=== PATIENT | male | born 1950 | race Hispanic/Latino ===

== ENCOUNTER 2018-12-03 13:54 | Inpatient (IN) | payer OTHER ==
[~2018-12-03] VITALS: Ht 170.2 cm; Wt 69.2 kg
[2018-12-03] MEDS ORDERED: ONDANSETRON HCL 4 MG/2 ML VIAL ONE (14:12)
[2018-12-03] MEDS ORDERED: MORPHINE SULFATE 4 MG/1ML SYG ONE ×3 (14:12→23:13)
[2018-12-03] MEDS ORDERED: SODIUM CHLORIDE 0.9% 1000ML 1,000 ML IV ONE ×3 (14:13→18:13)
[2018-12-03 14:17] LABS: BASOPHILS % (AUTO) 0.5 % (0.0-5.0); HEMATOCRIT 41.5 % (42-54); LYMPHOCYTES % (AUTO) 5.2 % (21.0-51.0); MEAN CORPUSCULAR HGB CONC 34.5 g/dL (32.0-36.0); MEAN CORPUSCULAR VOLUME 92.8 fL (79-99); MONOCYTES % (AUTO) 3.6 % (3.0-13.0); NEUTROPHILS % (AUTO) 90.7 % (40.0-77.0); PLATELET COUNT (AUTO) 293 K/uL (130-400); RED BLOOD CELL COUNT(AUTO) 4.47 MIL/uL (4.50-6.20); RED CELL DISTRIBUTION WIDTH 13.4 % (11.0-15.5); WHITE BLOOD COUNT (AUTO) 22.3 K/uL (4.8-10.8)
[2018-12-03 14:32] LABS: CREATININE 1.3 mg/dL (0.5-1.5)
[2018-12-03 14:34] LABS: INR 0.95 (0.85-1.15); PARTIAL THROMBOPLASTIN TIME 31.1 SEC (26.3-35.5)
[2018-12-03 14:36] LABS: ALBUMIN 3.4 g/dL (3.5-5.0); BILIRUBIN,TOTAL 0.6 mg/dL (0.2-1.0)
[2018-12-03] MEDS ORDERED: ZOSYN 3.375GM+NS 50ML 50 ML IV ONE (15:55)
[2018-12-04] MEDS ORDERED: ZOSYN 3.375GM+NS 50ML 50 ML IV ONE (00:02)
[2018-12-04] MEDS ORDERED: MORPHINE SULFATE 4 MG/1ML SYG ONE (03:56)
[2018-12-04 04:08] LABS: BASOPHILS % (AUTO) 0.3 % (0.0-5.0); EOSINOPHILS % (AUTO) 0.1 % (0.0-8.0); HEMATOCRIT 41.5 % (42-54); LYMPHOCYTES % (AUTO) 4.5 % (21.0-51.0); MEAN CORPUSCULAR HEMOGLOBIN 31.8 pg (27.0-33.0); MEAN CORPUSCULAR HGB CONC 34.2 g/dL (32.0-36.0); MONOCYTES % (AUTO) 3.1 % (3.0-13.0); PLATELET COUNT (AUTO) 282 K/uL (130-400); RED BLOOD CELL COUNT(AUTO) 4.46 MIL/uL (4.50-6.20); RED CELL DISTRIBUTION WIDTH 13.7 % (11.0-15.5); WHITE BLOOD COUNT (AUTO) 20.9 K/uL (4.8-10.8)
[2018-12-04 04:16] LABS: POTASSIUM 3.3 mmol/L (3.5-5.1)
[2018-12-04 04:21] LABS: ALBUMIN 2.5 g/dL (3.5-5.0); BILIRUBIN,TOTAL 1.8 mg/dL (0.2-1.0); TOTAL PROTEIN, SERUM 6.4 g/dL (6.0-8.3)
[2018-12-04 08:00] VITALS: BP 111/70
[2018-12-04 11:00] VITALS: BP 107/65
[2018-12-04] MEDS ORDERED: ONDANSETRON HCL 4 MG/2 ML VIAL IVP PRN (12:45)
[2018-12-04] MEDS: ZOSYN 3.375GM+NS 50ML 50 ML IV SCH ×2 (13:43→20:07)
[2018-12-04] MEDS: SODIUM CHLORIDE 0.9% 1000ML 1,000 ML IV SCH ×2 (13:44→23:07)
[2018-12-04 16:00] VITALS: BP 103/60
[2018-12-04] MEDS: FAMOTIDINE/PF 20 MG/2 ML VIAL IV SCH (20:07)
[2018-12-04 20:16] VITALS: BP 106/60
[2018-12-05] VITALS (8 sets, daily range): BP systolic 102–166; BP diastolic 59–84
[2018-12-05] MEDS: ZOSYN 3.375GM+NS 50ML 50 ML IV SCH ×3 (04:28→21:18)
[2018-12-05 06:21] LABS: HEMATOCRIT 39.8 % (42-54); MEAN CORPUSCULAR HGB CONC 34.1 g/dL (32.0-36.0); PLATELET COUNT (AUTO) 226 K/uL (130-400); RED BLOOD CELL COUNT(AUTO) 4.23 MIL/uL (4.50-6.20); RED CELL DISTRIBUTION WIDTH 13.5 % (11.0-15.5)
[2018-12-05 06:27] LABS: CREATININE 1.2 mg/dL (0.5-1.5); POTASSIUM 3.5 mmol/L (3.5-5.1)
[2018-12-05] MEDS: SODIUM CHLORIDE 0.9% 1000ML 1,000 ML IV SCH ×2 (09:19→21:18)
[2018-12-05] MEDS: FAMOTIDINE/PF 20 MG/2 ML VIAL IV SCH ×2 (09:19→21:21)
--- NOTE | 2018-12-05 18:03 | NUR ---
INITIAL: Met w pt this afternoon to discuss dcp. Pt mentions that he lives w spouse. Prior to admission he was independent w ambulation and aDLs. He owns a rollator and nebulizer. Pt states that he was still driving prior to admission. Pt mentions he feels safe and comfortable to [place]. CM to continue to follow and wait for Md recommendations. Addendum: 12/06/18 at 1805 by SHARMAINE PABLO Amended: Links added.
[2018-12-06] VITALS (24 sets, daily range): BP systolic 92–123; BP diastolic 55–75
[2018-12-06] MEDS: SODIUM CHLORIDE 0.9% 1000ML 1,000 ML IV SCH ×2 (04:11→14:45)
[2018-12-06] MEDS: ZOSYN 3.375GM+NS 50ML 50 ML IV SCH ×3 (04:25→20:59)
[2018-12-06 05:50] LABS: MEAN CORPUSCULAR HEMOGLOBIN 31.7 pg (27.0-33.0); MEAN CORPUSCULAR HGB CONC 34.3 g/dL (32.0-36.0); MEAN CORPUSCULAR VOLUME 92.5 fL (79-99); PLATELET COUNT (AUTO) 263 K/uL (130-400); RED BLOOD CELL COUNT(AUTO) 4.11 MIL/uL (4.50-6.20); RED CELL DISTRIBUTION WIDTH 13.2 % (11.0-15.5); WHITE BLOOD COUNT (AUTO) 5.9 K/uL (4.8-10.8)
[2018-12-06 06:07] LABS: ALBUMIN 2.3 g/dL (3.5-5.0); BILIRUBIN,TOTAL 1.5 mg/dL (0.2-1.0); CREATININE 1.1 mg/dL (0.5-1.5); POTASSIUM 3.4 mmol/L (3.5-5.1); TOTAL PROTEIN, SERUM 6.7 g/dL (6.0-8.3)
[2018-12-06] MEDS: FAMOTIDINE/PF 20 MG/2 ML VIAL IV SCH ×2 (09:56→20:59)
[2018-12-06] MEDS ORDERED: IOHEXOL-350 50ML VIAL IV ONE (11:44)
--- NOTE | 2018-12-06 11:49 | NUR ---
PT LEFT TO GI LAB DENIES SOB OR CHEST PAIN VITAL SIGNS STABLE
[2018-12-06] MEDS ORDERED: FUROSEMIDE 10 MG/ML 2ML VIAL IV SCH (12:30)
[2018-12-06] MEDS ORDERED: LACTULOSE 20 GM/30 ML UDCUP PO SCH (12:30)
[2018-12-06] MEDS ORDERED: IPRATROPIUM/ALBUTEROL SULFATE 3 ML SOLUTION IH PRN (12:30)
[2018-12-06] MEDS ORDERED: INDOMETHACIN 50 MG SUPP.RECT RC SCH (13:00)
[2018-12-06] MEDS ORDERED: PROPOFOL 10 MG/ML 20ML VIAL IV ONE (13:12)
[2018-12-06] MEDS ORDERED: FENTANYL CITRATE PF 50 MCG/1 ML 2ML VIAL ONE (13:12)
[2018-12-06] MEDS ORDERED: LIDOCAINE HCL 2% 20ML ONE (13:12)
[2018-12-06] MEDS ORDERED: SUCCINYLCHOLINE 200MG/10ML SYR ONE (13:12)
[2018-12-06] MEDS ORDERED: EPHEDRINE SULFATE 50 MG/ML AMPULE ONE (13:46)
[2018-12-07] VITALS (24 sets, daily range): BP systolic 101–153; BP diastolic 43–93
[2018-12-07] MEDS: SODIUM CHLORIDE 0.9% 1000ML 1,000 ML IV SCH ×2 (00:27→10:45)
[2018-12-07] MEDS: ZOSYN 3.375GM+NS 50ML 50 ML IV SCH ×3 (04:39→20:27)
[2018-12-07 05:11] LABS: HEMATOCRIT 35.8 % (42-54); MEAN CORPUSCULAR HEMOGLOBIN 32.3 pg (27.0-33.0); MEAN CORPUSCULAR HGB CONC 34.6 g/dL (32.0-36.0); MEAN CORPUSCULAR VOLUME 93.5 fL (79-99); PLATELET COUNT (AUTO) 271 K/uL (130-400); RED BLOOD CELL COUNT(AUTO) 3.83 MIL/uL (4.50-6.20); RED CELL DISTRIBUTION WIDTH 13.6 % (11.0-15.5); WHITE BLOOD COUNT (AUTO) 5.2 K/uL (4.8-10.8)
[2018-12-07 05:26] LABS: ALBUMIN 2.3 g/dL (3.5-5.0); BILIRUBIN,TOTAL 0.8 mg/dL (0.2-1.0); POTASSIUM 3.4 mmol/L (3.5-5.1); TOTAL PROTEIN, SERUM 6.4 g/dL (6.0-8.3)
[2018-12-07] MEDS: FAMOTIDINE/PF 20 MG/2 ML VIAL IV SCH ×2 (09:00→20:27)
--- NOTE | 2018-12-07 09:00 | NUR ---
PATIENT TAKING OFF UNIT TO OR HOLDING VIA BED
[2018-12-07] MEDS ORDERED: LACTATED RINGERS 1000ML 1,000 ML IV ONE (09:13)
--- NOTE | 2018-12-07 10:47 | NUR ---
POTENTIAL FOR INFECTION: SHAVED ENTIRE ABDOMEN PER [facility].
[2018-12-07] MEDS ORDERED: MIDAZOLAM HCL 1 MG/ML 2ML VIAL ONE (11:09)
[2018-12-07] MEDS ORDERED: PROPOFOL 10 MG/ML 20ML VIAL IV ONE (11:10)
[2018-12-07] MEDS ORDERED: FENTANYL CITRATE PF 50 MCG/1 ML 5ML AMP IV ONE (11:10)
[2018-12-07] MEDS ORDERED: GLYCOPYRROLATE 1 MG/5 ML SYRINGE ONE (11:11)
[2018-12-07] MEDS ORDERED: BUPIVACAINE/PF 0.5% 30ML VIAL ONE (11:44)
[2018-12-07] MEDS ORDERED: CEFAZOLIN SODIUM 1 GM VIAL ONE (12:05)
[2018-12-07] MEDS ORDERED: MEPERIDINE-PF 25 MG/ML SYG ONE (12:53)
--- NOTE | 2018-12-07 13:30 | NUR ---
REPORT CALLED PATIENT S/P LOUIE SOL WITH DR JARAD CHAUDHRY INCISION WITH BAND-AIDES X 4 DEMEROL GIVEN 25MG AT 1300 B/P144/64 HR 52 O2 ORIN 97 ON ROOM AIR RR 20 T 97.4 , DENIES PAIN AT THIS TIME BIND-AIDS DRY AND INTACT . IV INFUSING AT 75 CC/HR WILL CONTINUE TO MONITOR
[2018-12-07] MEDS: LACTATED RINGERS 1000ML 1,000 ML IV SCH (14:14)
[2018-12-07] MEDS: ACETAMINOPHEN 325 MG TAB PO PRN (20:27)
[2018-12-08] MEDS: LACTATED RINGERS 1000ML 1,000 ML IV SCH ×2 (02:13→17:47)
[2018-12-08] MEDS: ZOSYN 3.375GM+NS 50ML 50 ML IV SCH ×3 (04:07→20:47)
[2018-12-08 04:30] VITALS: BP 118/69
[2018-12-08 05:55] LABS: BASOPHILS % (AUTO) 0.6 % (0.0-5.0); EOSINOPHILS % (AUTO) 2.3 % (0.0-8.0); HEMATOCRIT 37.3 % (42-54); LYMPHOCYTES % (AUTO) 14.7 % (21.0-51.0); MEAN CORPUSCULAR HEMOGLOBIN 31.6 pg (27.0-33.0); MEAN CORPUSCULAR HGB CONC 34.6 g/dL (32.0-36.0); MEAN CORPUSCULAR VOLUME 91.4 fL (79-99); MONOCYTES % (AUTO) 6.2 % (3.0-13.0); NEUTROPHILS % (AUTO) 76.2 % (40.0-77.0); PLATELET COUNT (AUTO) 273 K/uL (130-400); RED BLOOD CELL COUNT(AUTO) 4.08 MIL/uL (4.50-6.20); RED CELL DISTRIBUTION WIDTH 13.1 % (11.0-15.5); WHITE BLOOD COUNT (AUTO) 7.3 K/uL (4.8-10.8)
[2018-12-08 06:04] LABS: CREATININE 1.1 mg/dL (0.5-1.5); MAGNESIUM 1.7 mg/dL (1.80-2.40); PHOSPHORUS 2.9 mg/dL (2.5-4.9); POTASSIUM 3.4 mmol/L (3.5-5.1)
[2018-12-08 07:42] VITALS: BP 127/77
[2018-12-08] MEDS: FAMOTIDINE/PF 20 MG/2 ML VIAL IV SCH ×2 (07:53→20:47)
[2018-12-08] MEDS: MORPHINE SULFATE 4 MG/1ML SYG IVP PRN ×3 (07:54→17:47)
[2018-12-08 11:14] VITALS: BP 125/61
[2018-12-08] MEDS ORDERED: MAGNESIUM 2GM PREMIX 50ML 50 ML IV PRN (12:45)
[2018-12-08] MEDS ORDERED: POTASSIUM CHLORIDE 20 MEQ ERTAB PO SCH (13:00)
[2018-12-08] MEDS: POTASSIUM CHLORIDE 20 MEQ ERTAB PO SCH ×3 (13:33→20:51)
[2018-12-08 15:55] VITALS: BP 111/66
[2018-12-08 19:41] VITALS: BP 134/77
[2018-12-09 00:17] VITALS: BP 131/80
[2018-12-09 03:52] VITALS: BP 147/71
[2018-12-09] MEDS: LACTATED RINGERS 1000ML 1,000 ML IV SCH ×2 (04:33→17:53)
[2018-12-09] MEDS: ZOSYN 3.375GM+NS 50ML 50 ML IV SCH ×3 (05:26→20:16)
[2018-12-09] MEDS: ACETAMINOPHEN 325 MG TAB PO PRN (05:36)
[2018-12-09 05:54] LABS: BASOPHILS % (AUTO) 1.2 % (0.0-5.0); HEMATOCRIT 38.4 % (42-54); LYMPHOCYTES % (AUTO) 17.6 % (21.0-51.0); MEAN CORPUSCULAR HEMOGLOBIN 31.8 pg (27.0-33.0); MEAN CORPUSCULAR VOLUME 93.3 fL (79-99); NEUTROPHILS % (AUTO) 71.2 % (40.0-77.0); PLATELET COUNT (AUTO) 281 K/uL (130-400); RED BLOOD CELL COUNT(AUTO) 4.11 MIL/uL (4.50-6.20); RED CELL DISTRIBUTION WIDTH 13.4 % (11.0-15.5); WHITE BLOOD COUNT (AUTO) 8.1 K/uL (4.8-10.8)
[2018-12-09 05:59] LABS: CREATININE 0.9 mg/dL (0.5-1.5); MAGNESIUM 2.1 mg/dL (1.80-2.40); POTASSIUM 3.6 mmol/L (3.5-5.1)
[2018-12-09 07:39] VITALS: BP 127/70
[2018-12-09] MEDS: FAMOTIDINE/PF 20 MG/2 ML VIAL IV SCH ×2 (09:35→20:16)
[2018-12-09 11:33] VITALS: BP 116/53
[2018-12-09] MEDS: HYDROCODONE/ACETAMINOPHEN 10/325 MG TAB PO PRN ×2 (14:37→19:02)
[2018-12-09 15:22] VITALS: BP 121/67
[2018-12-09] MEDS: DOCUSATE SODIUM 100 MG CAP PO SCH (20:16)
[2018-12-09] MEDS: METOCLOPRAMIDE 10 MG/2 ML VIAL IVP SCH (20:16)
[2018-12-09 20:48] VITALS: BP 120/60
--- NOTE | 2018-12-09 23:35 | NUR ---
Patient ambulated in the hallways to help move bowels. Tolerated well
[2018-12-10 00:07] VITALS: BP 120/68
[2018-12-10 04:20] VITALS: BP 103/58
[2018-12-10 04:52] LABS: BASOPHILS % (AUTO) 0.7 % (0.0-5.0); EOSINOPHILS % (AUTO) 4.5 % (0.0-8.0); LYMPHOCYTES % (AUTO) 25.9 % (21.0-51.0); MEAN CORPUSCULAR HEMOGLOBIN 31.7 pg (27.0-33.0); MEAN CORPUSCULAR VOLUME 93.1 fL (79-99); NEUTROPHILS % (AUTO) 58.9 % (40.0-77.0); NUCLEATED RED BLOOD CELLS 0.1 % (0.0-0.19); PLATELET COUNT (AUTO) 303 K/uL (130-400); RED BLOOD CELL COUNT(AUTO) 3.87 MIL/uL (4.50-6.20); RED CELL DISTRIBUTION WIDTH 13.8 % (11.0-15.5)
[2018-12-10 05:06] LABS: CREATININE 1.1 mg/dL (0.5-1.5); POTASSIUM 3.5 mmol/L (3.5-5.1)
[2018-12-10] MEDS: ZOSYN 3.375GM+NS 50ML 50 ML IV SCH ×2 (05:15→12:25)
[2018-12-10] MEDS: HYDROCODONE/ACETAMINOPHEN 10/325 MG TAB PO PRN ×2 (05:20→11:10)
[2018-12-10] MEDS: LACTATED RINGERS 1000ML 1,000 ML IV SCH (07:13)
[2018-12-10 07:28] VITALS: BP 102/63
[2018-12-10] MEDS ORDERED: LACTULOSE 20 GM/30 ML UDCUP PO SCH (09:45)
[2018-12-10] MEDS ORDERED: BISACODYL 10 MG SUPP.RECT RC SCH (09:45)
[2018-12-10] MEDS: DOCUSATE SODIUM 100 MG CAP PO SCH (09:48)
[2018-12-10] MEDS: METOCLOPRAMIDE 10 MG/2 ML VIAL IVP SCH (09:48)
[2018-12-10] MEDS: FAMOTIDINE/PF 20 MG/2 ML VIAL IV SCH (09:48)
[2018-12-10 11:26] VITALS: BP 96/52
[2018-12-10] MEDS ORDERED: DOCU-275 PO (11:55)
[2018-12-10] MEDS ORDERED: ACET-2247 PO (11:55)
--- NOTE | 2018-12-10 13:00 | NUR ---
PENDING DISCHARGE CRITERIA FOR DISCHARGE PER SURGERY: BOWEL MOVEMENT. STILL PENDING.
[2018-12-10] MEDS ORDERED: ACET325C6 PO (13:56)
[2018-12-10] MEDS ORDERED: DOCU-116 PO (13:58)
== END 2018-12-10 15:20 | disposition home or self-care (01) | DRG 418 ==
LOC: EDH 13:54 → EDHIP 18:00 → OBSVTOIN 18:00 → 4DH 12-04 08:00
PROVIDERS: ADMIT Internal Medicine Critical Care Medicine; ATTEND Internal Medicine Critical Care Medicine
PROC: 0FT44ZZ Resection of Gallbladder, Percutaneous Endoscopic Approach (ICD-10-PCS; principal; 2018-12-07 11:25)
DX: K80.62 Calculus of gallbladder and bile duct with acute cholecystitis without obstruction (principal); E44.0 Moderate protein-calorie malnutrition; E11.9 Type 2 diabetes mellitus without complications; F32.9 Major depressive disorder, single episode, unspecified; E78.5 Hyperlipidemia, unspecified; F17.200 Nicotine dependence, unspecified, uncomplicated; K21.9 Gastro-esophageal reflux disease without esophagitis; Z86.74 Personal history of sudden cardiac arrest
CPT/HCPCS: 36415; 43262; 43264; 71045; 74176; 74181; 74330; 76705; 80048; 80053; 82550; 82948; 83605; 83690; 83735; 83880; 84100; 84484; 85025; 85027; 85610; 85730; 87040; 88304; 93005; 94640; 94664; 97039; 99291; A4606; C1769; C1773; G0378; J0330; J0690; J2175; J2250; J2270; J2405; J2543; J2704; J2765; J3010; J3475; J3490; J7030; J7120; Q9967

== ENCOUNTER 2020-05-13 07:01 | Observation (INO) | payer OTHER ==
[~2020-05-13] VITALS: Ht 167.6 cm; Wt 69.4 kg
[~2020-05-13 07:01] MED LIST: ACET325C6 PO; DOCU-116 PO
[2020-05-13 07:23] LABS: BASOPHILS % (AUTO) 0.7 % (0.0-5.0); EOSINOPHILS % (AUTO) 4.1 % (0.0-8.0); HEMATOCRIT 43.5 % (42-54); LYMPHOCYTES % (AUTO) 27.1 % (21.0-51.0); MEAN CORPUSCULAR HEMOGLOBIN 31.6 pg (27.0-33.0); MEAN CORPUSCULAR HGB CONC 34.5 g/dL (32.0-36.0); MEAN CORPUSCULAR VOLUME 91.6 fL (79-99); MONOCYTES % (AUTO) 7.9 % (3.0-13.0); NEUTROPHILS % (AUTO) 59.3 % (40.0-77.0); PLATELET COUNT (AUTO) 269 K/uL (130-400); RED BLOOD CELL COUNT(AUTO) 4.75 MIL/uL (4.50-6.20); RED CELL DISTRIBUTION WIDTH 12.5 % (11.0-15.5); WHITE BLOOD COUNT (AUTO) 10.8 K/uL (4.8-10.8)
[2020-05-13 07:36] LABS: ALBUMIN 3.6 g/dL (3.5-5.0); BILIRUBIN,TOTAL 0.4 mg/dL (0.2-1.0); CREATININE 1.2 mg/dL (0.5-1.5); POTASSIUM 3.8 mmol/L (3.5-5.1); TOTAL PROTEIN, SERUM 7.6 g/dL (6.0-8.3)
[2020-05-13 07:41] LABS: INR 0.94 (0.85-1.15); PROTHROMBIN TIME 10.3 SEC (9.6-11.6)
[2020-05-13 07:43] LABS: PARTIAL THROMBOPLASTIN TIME 27.5 SEC (26.3-35.5)
[2020-05-13] MEDS ORDERED: 0.9%NACL 1000ML 1,000 ML IV ONE (07:49)
[2020-05-13] MEDS ORDERED: IOHEXOL 350 MG/ML 100ML INFUS..BTL IV ONE (08:15)
[2020-05-13] MEDS ORDERED: ONDANSETRON 4MG INJ ONE (09:17)
[2020-05-13] MEDS ORDERED: MORPHINE 2 MG SYG ONE (09:17)
[2020-05-13] MEDS ORDERED: ORPHENADRINE CITRATE 30 MG/ML ML ONE (09:17)
[2020-05-13 09:37] LABS: APPEARANCE,URINE Clear (CLEAR); BILIRUBIN,URINE Negative (NEGATIVE); COLOR,URINE Yellow (YELLOW); GLUCOSE, URINE (UA) Negative (NEGATIVE); KETONES,URINE Negative (NEGATIVE); LEUKOCYTE ESTERASE ,URINE Negative (NEGATIVE); NITRATE,URINE Negative (NEGATIVE); OCCULT BLOOD,URINE Nonhemolyzed Trace (NEGATIVE); PH,URINE 6.5 (5.0-8.0); PROTEIN,URINE Negative (NEGATIVE)
[2020-05-13 10:00] LABS: BACTERIA,URINE None Seen /HPF (None Seen); RBC,URINE 0-1 /HPF (0-1); WBC,URINE None Seen /HPF (0-1)
[2020-05-13 10:01] LABS: SQUAMOUS EPITHELIAL CELL,UR 0-2 /HPF (0-2)
[2020-05-13 12:50] LABS: ABG HCO3 19.7 mmol/L (21.0-28.0); ABG OXYGEN SATURATION 89.1 % (95.0-99.0); ABG PCO2 36 mmHg (35-48)
[2020-05-13] MEDS ORDERED: ACETAMINOPHEN 325 MG TAB PO PRN ×2 (15:45)
[2020-05-13] MEDS ORDERED: LACTULOSE 20 GM/30 ML UDCUP PO PRN (15:45)
[2020-05-13] MEDS ORDERED: ACETAMINOPHEN WITH CODEINE 1 TAB TAB PO PRN (15:45)
[2020-05-13] MEDS ORDERED: ONDANSETRON 4MG INJ IV PRN (15:45)
[2020-05-13] MEDS ORDERED: ACETAMINOPHEN WITH CODEINE 1 TAB TAB ONE ×2 (16:06→16:10)
[2020-05-14] VITALS (7 sets, daily range): BP systolic 120–152; BP diastolic 57–82
[2020-05-14] MEDS ORDERED: ROSU20TA31 PO (00:40)
[2020-05-14] MEDS ORDERED: OMEP40CA21 PO (00:40)
[2020-05-14] MEDS ORDERED: AZEL137S11 EN (00:40)
[2020-05-14] MEDS ORDERED: LEVO5TAB13 PO (00:40)
[2020-05-14] MEDS ORDERED: MONT-39 PO (00:40)
[2020-05-14] MEDS ORDERED: ASPI-1443 PO (00:45)
[2020-05-14] MEDS ORDERED: LORA10TA7 PO (00:45)
[2020-05-14] MEDS ORDERED: ALBU0.63 NEB (00:45)
[2020-05-14] MEDS: FAMOTIDINE 20MG TAB PO SCH ×3 (01:02→20:39)
[2020-05-14] MEDS: ACETAMINOPHEN WITH CODEINE 1 TAB TAB PO PRN ×2 (01:04→09:42)
[2020-05-14] MEDS: 0.9%NACL 1000ML 1,000 ML IV SCH ×4 (01:08→17:53)
[2020-05-14] MEDS ORDERED: LIDOCAINE 5% TOPICAL PATCH TP SCH (11:45)
[2020-05-15 03:37] VITALS: BP 148/83
[2020-05-15 06:32] LABS: BASOPHILS % (AUTO) 0.4 % (0.0-5.0); EOSINOPHILS % (AUTO) 1.2 % (0.0-8.0); HEMATOCRIT 43.3 % (42-54); LYMPHOCYTES % (AUTO) 12.3 % (21.0-51.0); MEAN CORPUSCULAR HEMOGLOBIN 31.4 pg (27.0-33.0); MEAN CORPUSCULAR HGB CONC 34.2 g/dL (32.0-36.0); MEAN CORPUSCULAR VOLUME 91.7 fL (79-99); MONOCYTES % (AUTO) 8.2 % (3.0-13.0); NEUTROPHILS % (AUTO) 77.6 % (40.0-77.0); PLATELET COUNT (AUTO) 230 K/uL (130-400); RED BLOOD CELL COUNT(AUTO) 4.72 MIL/uL (4.50-6.20); RED CELL DISTRIBUTION WIDTH 12.4 % (11.0-15.5); WHITE BLOOD COUNT (AUTO) 10.6 K/uL (4.8-10.8)
[2020-05-15 06:35] LABS: POTASSIUM 3.9 mmol/L (3.5-5.1)
[2020-05-15 08:48] VITALS: BP 147/75
[2020-05-15] MEDS: 0.9%NACL 1000ML 1,000 ML IV SCH (09:45)
[2020-05-15] MEDS: FAMOTIDINE 20MG TAB PO SCH ×2 (09:46→21:56)
[2020-05-15 12:00] VITALS: BP 141/76
[2020-05-15 16:00] VITALS: BP 125/67
[2020-05-15 20:00] VITALS: BP 137/74
== END 2020-05-15 22:25 | disposition home or self-care (01) ==
LOC: EDH 07:01 → EDHIP 15:38 → 3DH 23:30
PROVIDERS: ADMIT Internal Medicine; ATTEND Internal Medicine
DX: R09.02 Hypoxemia (principal); S40.812A Abrasion of left upper arm, initial encounter; J43.2 Centrilobular emphysema; K21.9 Gastro-esophageal reflux disease without esophagitis; D72.810 Lymphocytopenia; E11.9 Type 2 diabetes mellitus without complications; F32.9 Major depressive disorder, single episode, unspecified; F17.210 Nicotine dependence, cigarettes, uncomplicated; Z90.49 Acquired absence of other specified parts of digestive tract; Z79.899 Other long term (current) drug therapy; V03.10XA Pedestrian on foot injured in collision with car, pick-up truck or van in traffic accident, initial encounter; Y93.89 Activity, other specified; Y92.410 Unspecified street and highway as the place of occurrence of the external cause
CPT/HCPCS: 36415 ×2; 36600; 70450; 71260; 72125; 73130; 74177; 80048; 80053; 81001; 82550; 82784; 82803; 84484; 85025 ×2; 85610; 85651; 85730; 86038; 86235 ×3; 86431; 86812; 93005; 94760 ×2; 96360; 96361 ×2; 97039 ×2; 97116 ×2; 97161; 99285; G0378 ×53; G8978; G8979; G8980; G8981; G8982; G8983; J2360; J2405; J7030 ×2; Q9967; 71250

== ENCOUNTER → 2020-08-09 | Outpatient (CLI) | payer OTHER ==
[~2020-08-09] MED LIST changes: +ALBU0.63 NEB; +ALBUTEROL 0.083% 2.5 MG/3 ML INH IH ONE; +ASPI-1443 PO; +AZEL137S11 EN; -DOCU-116 PO; +LEVO5TAB13 PO; +LORA10TA7 PO; +MONT10TA32 PO; +OMEP40CA21 PO; +ROSU20TA31 PO
[2020-08-09 09:27] LABS: ABG BASE EXCESS -1.8 mmol/L (-2.0-3.0); ABG HCO3 21.7 mmol/L (21.0-28.0); ABG OXYGEN SATURATION 95.1 % (95.0-99.0); ABG PCO2 33 mmHg (35-48)
== END | disposition home or self-care (01) ==
LOC: RESP 08:43
PROVIDERS: ATTEND Internal Medicine
DX: J44.9 Chronic obstructive pulmonary disease, unspecified (principal); F17.210 Nicotine dependence, cigarettes, uncomplicated
CPT/HCPCS: 36600; 82803; 94060; 94727; 94729

== ENCOUNTER 2024-10-21 04:19 | Emergency (ER) | payer OTHER ==
[~2024-10-21] VITALS: Ht 167.6 cm; Wt 61.7 kg
[~2024-10-21 04:19] MED LIST changes: -ALBUTEROL 0.083% 2.5 MG/3 ML INH IH ONE; +MONT-39 PO; -MONT10TA32 PO; -ROSU20TA31 PO; +ROSU20TA98 PO
[2024-10-21 04:48] LABS: IMMATURE GRANULOCYTE ABSOLUTE 0.03 K/uL (0-1); NUCLEATED RED BLOOD CELLS 0.0 % (0.0-0.19); PLATELET COUNT (AUTO) 235 K/uL (130-400); RED BLOOD CELL COUNT(AUTO) 4.42 MIL/uL (4.50-6.20); RED CELL DISTRIBUTION WIDTH 12.3 % (11.0-15.5); WHITE BLOOD COUNT (AUTO) 8.0 K/uL (4.8-10.8)
--- NOTE | 2024-10-21 04:56 | ERN ---
ED Note History of Present Illness Stated Complaint: C/O SOB, DIZZINESS Chief Complaint: Dizzy/Light Headed Time Seen by MD: 04:48 Dictation: 74-year-old male presents to the ER complaining of shortness breath, said that he has history of COPD, but he remains active cigarette smoker. Stated that he feels dizziness with the changes on position. Denies fever, chills, denies chest pain. Allergies: Coded Allergies: No Known Drug Allergies (Unverified Allergy, Unknown, 12/04/18) Home Meds Active Scripts Acetaminophen (Tylenol) 325 Mg Capsule, 325 MG PO Q6HPRN PRN for PAIN LEVEL 1 TO 5 for 30 Days, #120 CAP 0 Refills Prov:ANASTACIO RICCI NP 12/10/18 Reported Medications Albuterol Sulfate (Albuterol Sulfate) 0.63 Mg/3 Ml Vial.neb, 1 VIAL NEB QID PRN for SHORTNESS OF BREATH/WHEEZING 05/14/20 Loratadine (Claritin) 10 Mg Tab, 1 TAB PO HS 05/14/20 Aspirin (Aspirin EC) 81 Mg Tablet.dr, 1 TAB PO DAILY 05/14/20 Levocetirizine Dihydrochloride (Levocetirizine Dihydrochloride) 5 Mg Tablet, 1 TAB PO DAILY 05/14/20 Rosuvastatin Calcium (Rosuvastatin Calcium) 20 Mg Tablet, 1 TAB PO DAILY 05/14/20 Montelukast Sodium (Montelukast Sodium) 10 Mg Tablet, 1 TAB PO DAILY 05/14/20 Azelastine HCl (Azelastine HCl) 137 Mcg/0.137 Ml [place].pump, 2 SPRY EN BID 05/14/20 Omeprazole (Omeprazole) 40 Mg Capsule.dr, 1 CAP PO DAILY 05/14/20 Past Medical History Past Medical History: COPD, Other Additional Past Medical Hx: SLEEP APNEA; ACID REFLUX Surgical History: Other Review of System Dictation NEGATIVE EXCEPT PER HPI Constitutional: Negative for fever,chills, and weight loss Eyes: Negative for injury, pain,redness, and discharge ENT: Negative for injury,pain or swelling Cardiovascular: denies chest pain, palpitations, and edema Respiratory: Reports shortness breath Abdomen/GI: Negative for abdominal pain, nausea, vomiting, diarrhea, and constipation Back: Negative for injury and pain : Negative for injury, bleeding and discharge MS/Extremity: Negative for injury and deformity Skin: Negative for rash, and discoloration Neuro: Negative for headache, weakness, numbness, tingling, and seizure . Reports dizziness Psych: Negative for suicide ideation, homicidal ideation, and hallucinations Initial Vital Sign VS Vital Signs Date Time Temp Pulse Resp B/P (MAP) Pulse Ox O2 Delivery O2 Flow Rate FiO2 10/21/24 04:21 97.9 107 20 143/77 95 Room Air 10/21/24 04:44 0 21 Physical Exam Dictation General: awake, alert, NAD Head/Face: Normocephalic, atraumatic Eyes: PERRL, EOMI, vision at baseline ENT: oral cavity clear, TMs clear, no signs of infection Neck: Trachea midline, supple, no nuchal rigidity Cardiovascular: RRR, normal S1/S2, No MRGs, no JVD Respiratory: CTAB, no respiratory distress, No rales or wheezes Abdomen: Soft , no tender Skin: Warm, dry, normal turgor, no rash MS/Extremity: Pulses equal, no cyanosis, neurovascular intact, FROM Neuro: COAx4, GCS 15, strength 5/5, CN 2-12 intact, normal cerebellar exam, normal gait, Psych: Normal behavior, mood, and affect normal Results (Laboratory/Radiology) Laboratory/Radiology Laboratory Tests Test 10/21/24 04:35 10/21/24 04:38 Influenza Type A Antigen Negative For Type A Influenza Type B Antigen Negative For Type B SARS-CoV-2, RNA, NAAT NEGATIVE SARS CoV-2 White Blood Count 8.0 K/uL (4.8-10.8) Red Blood Count 4.42 MIL/uL (4.50-6.20) L Hemoglobin 14.8 g/dL (14.0-18.0) Hematocrit 41.9 % (42-54) L Mean Corpuscular Volume 94.8 fL (79-99) Mean Corpuscular Hemoglobin 33.5 pg (27.0-33.0) H Mean Corpuscular Hemoglobin Concent 35.3 g/dL (32.0-36.0) Red Cell Distribution Width 12.3 % (11.0-15.5) Platelet Count 235 K/uL (130-400) Mean Platelet Volume 8.7 fL (7.5-10.5) Immature Granulocyte % (Auto) 0.4 % (0-1) Neutrophils (%) (Auto) 73.8 % (40.0-77.0) Lymphocytes (%) (Auto) 20.0 % (21.0-51.0) L Monocytes (%) (Auto) 5.2 % (3.0-13.0) Eosinophils (%) (Auto) 0.3 % (0.0-8.0) Basophils (%) (Auto) 0.3 % (0.0-5.0) Neutrophils # (Auto) 5.9 K/uL (1.8-7.7) Lymphocytes # (Auto) 1.6 K/uL (1.0-4.8) Monocytes # (Auto) 0.4 K/uL (0.1-1.0) Eosinophils # (Auto) 0.02 K/uL (0.00-0.70) Basophils # (Auto) 0.02 K/uL (0.00-0.20) Absolute Immature Granulocyte (auto 0.03 K/uL (0-1) Nucleated Red Blood Cells 0.0 % (0.0-0.19) Sodium Level 138 mmol/L (136-145) Potassium Level 3.5 mmol/L (3.5-5.1) Chloride Level 104 mmol/L (101-111) Carbon Dioxide Level 25 mmol/L (21-32) Blood Urea Nitrogen 21 mg/dL (7-18) H Creatinine 1.1 mg/dL (0.5-1.3) Glomerular Filtration Rate Calc 71 mL/min (>90) Random Glucose 154 mg/dL (70-105) H Total Calcium 9.0 mg/dL (8.5-10.1) Total Creatine Kinase 51 U/L (21-232) # Troponin I High Sensitivity 6.2 ng/L (4-75) B-Type Natriuretic Peptide 29 pg/mL (0-100) EKG Comment: EKG sinus rhythm. Normal EKG ED Course ED Course Orders Procedure Category Date Status Time Cbc With Differential LAB 10/21/24 Complete 04:29 Cardiac Panel LAB 10/21/24 Complete 04:29 Chest 1vw RAD 10/21/24 Taken 04: 12 Lead Ekg Tracing- EKG 10/21/24 Logged Technical 04:29 Basic Metabolic Panel LAB 10/21/24 Complete 04:29 B-Type Natriuretic LAB 10/21/24 Complete Peptide 04:29 Covid Rna Naat LAB 10/21/24 Complete 04:31 Influenza Type A & B, LAB 10/21/24 Complete Rapid 04:31 Ipratropium/Albuterol PHA 10/21/24 Complete Neb (Duoneb) 05:00 Current Medications Medications (Trade) Dose Ordered Sig/Minna Route PRN Reason Start Time Stop Time Status Last Admin Dose Admin Albuterol (DUOneb) 1 udvial ONCE ONCE IH 10/21/24 05:00 10/21/24 05:01 DC 10/21/24 05:02 Vital Signs Date Time Temp Pulse Resp B/P (MAP) Pulse Ox O2 Delivery O2 Flow Rate FiO2 10/21/24 05:41 98.2 84 17 126/63 96 Room Air* 0 21 10/21/24 05:03 65 18 10/21/24 04:44 98.4 78 18 128/76 97 Room Air* 0 21 10/21/24 04:21 97.9 107 20 143/77 95 Room Air Medical Decision Making MDM 74-year-old male with a history of COPD comes to the ER complaining of shortness breath and dizziness. He is active cigarette smoker. Patient is saturating 97% on room air. Possible COPD exacerbation Possible Pneumonia Possible Dehydration Laboratory workup or including CBC, BNP, troponin EKG, chest x-ray. Medication ordered: [facility] within normal limits. EKG normal Chest x-ray compatible with a COPD patient. Patient received recommendation to follow up with the primary care physician, possible with the procurement agent. He was advised to quit smoking. DX & DISP Disposition: Discharge Departure Impression: Primary Impression: COPD (chronic obstructive pulmonary disease) Additional Impression: COPD exacerbation Condition: Stable Scripts Albuterol Sulfate (Ventolin Hfa) 90 Mcg Hfa.aer.ad 2 PUFF IH Q4HPRN PRN for wheezing for 30 Days, #18 GM 0 Refills Prov: ADEBAYO STRONG MD 10/21/24 Additional Instructions: RETURN TO ER FOR ANY ACUTE OR WORSENING SYMPTOMS. FOLLOW-UP IN 1-2 DAYS WITH PRIMARY PROVIDER FOR RECHECK OF TODAY'S SYMPTOMS. Referrals: RODRIGO DIA (PCP) Time of Disposition: 05:49 ADEBAYO STRONG MD Oct 21, 2024 04:56
[2024-10-21 05:03] VITALS: PULSE 65; RESP 18
[2024-10-21 05:04] LABS: SARS-CoV-2, RNA, NAAT NEGATIVE SARS CoV-2 (NEGATIVE)
[2024-10-21 05:08] LABS: INFLUENZA TYPE A Negative For Type A (NEGATIVE); INFLUENZA TYPE B Negative For Type B (NEGATIVE)
[2024-10-21 05:08] LABS: CREATININE 1.1 mg/dL (0.5-1.3); GLOMERULAR FILTR. RATE CALC 71.0 mL/min (>90); GLUCOSE,RANDOM 154.0 mg/dL (70-105); SODIUM SERUM 138.0 mmol/L (136-145); UREA NITROGEN, BLOOD 21.0 mg/dL (7-18)
[2024-10-21 05:16] LABS: CREATINE KINASE, TOTAL 51.0 U/L (21-232)
[2024-10-21 05:41] VITALS: BP 126/63; PULSE 84; RESP 17; TEMP 98.2; O2SAT 96
[2024-10-21] MEDS ORDERED: ALBU18HF7 IH (05:49)
--- NOTE | 2024-10-21 06:27 | HMCIMG ---
EXAM: CR Chest, 1 View. CLINICAL HISTORY: Dyspnea/SOB COMPARISON: 12/05/18 16:41 EDT CR - CHEST 1VW FINDINGS: LUNGS: The lungs show no infiltrate or other acute finding. PLEURAL SPACES: No pleural effusion or pneumothorax. MEDIASTINUM: Cardiac size and mediastinal contours within normal limits. BONES: Chronic healed left rib fractures which have appeared since the previous examination of 12/05/2018. IMPRESSION: No acute cardiopulmonary pathology is evident. /[place]
--- NOTE | 2024-10-21 07:59 | EKG ---
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
== END 2024-10-21 06:01 | disposition home or self-care (01) ==
LOC: EDH 04:19
DX: J44.1 Chronic obstructive pulmonary disease with (acute) exacerbation (principal); G47.30 Sleep apnea, unspecified; I49.1 Atrial premature depolarization; Z20.822 Contact with and (suspected) exposure to COVID-19; Z79.82 Long term (current) use of aspirin; Z79.899 Other long term (current) drug therapy
CPT/HCPCS: 36415; 71045; 80048; 82550; 83880; 84484; 85025; 87635; 87804; 93005; 94640; 99285

== ENCOUNTER → 2024-10-28 | Outpatient (CLI) | payer OTHER ==
[~2024-10-28] MED LIST changes: +ALBU18HF7 IH
[2024-10-28] MEDS: REGADENOSON 0.4 MG/5 ML PF SYG IVP ONE (10:49)
--- NOTE | 2024-10-28 15:03 | HMCSR ---
APPROVED REPORT Height: 5 ft 6in Weight: 134 lbs TEST INDICATIONS Syncope The imaging protocol used to acquire images was Rest Tc-99m/stress Tc-99m 1 day Consent: The procedure was explained and understood by the patient. Informerd consent was witnessed Karina VASQUEZ RN First, low dose rest was performed then high dose stress. RESTING DATA: The resting ekg shows: NSR Rest SPECT myocardial perfusion imaging was performed in supine position minutes following the intra venous injection of 11 mCi of Tc-99 Sestamibi. Time of rest injection: 09:15: Date: 10/28/2024 PHARMACOLOGIC STRESS: Pharmacologic stress test was performed by injecting regadenoson 0.4 mg IV push followed by the intra venous injection of 30 mCi of Tc-99 Sestamibi. Time of stress injection: 10:55: Date: 10/28/2024 Heart Rate at time of stress injection: 43 bpm. Gated Stress SPECT was performed 60 minutes after stress injection. The images were gated to evaluate regional wall motion and calculate left ventricular ejection fracti on. STRESS DETAILS Reason for Termination: Infusion complete Stress Symptoms: Dyspnea Max HR Achieved: 71 bpm % of APMHR Achieved: 57 Max Blood Pressure: 105/70 mmHg Stress ECG: NSR Study quality was fair. Lung uptake was Normal. Artifact: soft tissue attenuation artifact LEFT VENTRICLE The left ventricular ejection fraction was calculated to be >55%.TID = 0.97. LV PERFUSION Stress Perfusion Normal IMPRESSION Equivocally normal pharmacologic nuclear stress test. Conclusion Equivocally normal [id number] stress test with an LVEF >55% and a TID of 0.97 No reversible ischemia observed. Soft tissue attenuation suggestive of artifact.
== END | disposition home or self-care (01) ==
LOC: RAH 08:46
PROVIDERS: ATTEND Internal Medicine
DX: R55 Syncope and collapse (principal); R42 Dizziness and giddiness; R06.00 Dyspnea, unspecified
CPT/HCPCS: 78452; 93017; J2785; A9500 ×2

== ENCOUNTER → 2024-10-29 | Outpatient (CLI) | payer OTHER ==
--- NOTE | 2024-10-30 11:07 | HMCSR ---
APPROVED REPORT EXAM: Two-dimensional and M-mode echocardiogram with Doppler and color Doppler. INDICATION ICD: Syncope R55, R42, R06.00 2D Dimensions RVDd3.7 cmLVEF(%)69.1 (>50%)LVED Vol(simp.)76.0 mL IVSd1.1 (0.7-1.1cm)FS(%)38 %LVES Vol(simp.)25.0 mL LVDd4.1 (3.8-5.6cm)LVOT diam2.0 (1.8-2.4cm)LVEF(%, simp.)67 % PWd0.7 (0.7-1.1cm)LA ESV INDEX (BP)22.37 mL/m2 IVSs1.5 cm LVDs2.5 (2.5-4.0cm) PWs1.0 cm M-Mode Dimensions EPSS0.4 cm LA (MM)3.3 (1.6-4.0cm) Ao Root(MM)4.2 (2.0-3.7cm) Aortic Valve AoV Vmax2.6 m/Latasha Peak GR26.4 mmHgLVOT Vmax2.2 m/s AoV VTI0.5 mAo Mean GR13.6 mmHgLVOT VTI0.44 m AL (VMAX)2.66 cm2AVA (VTI) 2.8 cm2 Mitral Valve MV E Vmax86.3 cm/sDECEL Leqg179 ms MV A Vmax61.3 cm/sP 1/2 T53 ms E/A ratio1.4MVA (PHT)4.2 cm2 TDI E/E' Tytmfh51.0E/E' Lhqeydx94.0 Medial E' Peak V8.59 cm/sLateral E' Peak V8.59 cm/s Pulmonary Valve PV Vmax1.3 m/sPV VTI0.24 mPV Mean GR3.4 mmHg PV Peak GR6.4 mmHg Tricuspid Valve TR Vmax1.7 m/sRAP (EST) 3 inYjEVPG97.5 mmHg TR Peak GR11.5 mmHg Left Ventricle The left ventricle is normal size. There is normal left ventricular wall thickness. The LVEF is > 65% . The left ventricular diastolic function is normal. Right Ventricle The right ventricle is normal size. The right ventricular systolic function is normal. Atria The left atrium size is normal. The right atrium size is normal. Aortic Valve The aortic valve is normal in structure. No aortic regurgitation is present. There is no aortic valvu lar stenosis. Mitral Valve The mitral valve is normal in structure. There is trace of mitral valve regurgitation noted. There is no mitral valve stenosis. Tricuspid Valve The tricuspid valve is normal in structure. There is trace of tricuspid valve regurgitation noted. Pulmonic Valve The pulmonary valve is normal in structure. There is no pulmonic valvular regurgitation. Great Vessels The aortic root is normal in size. The IVC is normal in size and collapses >50% with inspiration. Pericardium There is no pericardial effusion. Other Information Quality : Technically difficult study due to body habitus
== END | disposition home or self-care (01) ==
LOC: RAH 13:16
PROVIDERS: ATTEND Internal Medicine
DX: R55 Syncope and collapse (principal); R42 Dizziness and giddiness; R06.00 Dyspnea, unspecified; D45 Polycythemia vera
CPT/HCPCS: 93306